=== PATIENT | female | born 1940 | race Caucasian/White ===

== ENCOUNTER 2016-10-06 09:43 | Emergency (ER) | payer MEDICARE ==
[~2016-10-06 09:43] MED LIST: ALAVERT10 MG PO; ALBUTEROL17 GM INH; AMLODIPINE BESYL5 MG PO; ASPIRIN PO; ASPIRIN81 MG PO; B-121000 MC3 SUBQ; BENADRYL PO; BENTYL20 MG PO; BENZONATATE PO; BENZONATATE200 M1 PO; CALCIUM 250+D T1 TAB PO; CALCIUM 600 +1 EAC1 PO; CELEXA20 MG PO; CIPRO PO; CIPRO250 MG PO; CLARITIN10 MG PO; COMBIVENT INH14.7 GM INH; COMBIVENT14.7 GM INH; COREG PO; COREG6.25 MG PO; CYANOCOBAL1000 MCG/M INJ; DIAZEPAM PO; DIAZEPAM10 MG PO; FLAGYL PO; GABAPENTIN300 MG PO; GAS-X80 MG PO; GUAIFENESIN W-120 ML PO; HYDROCHLOROTH12.5 MG PO; HYDROCHLOROTHIA25 MG PO; LISINOPRIL PO; LISINOPRIL20 MG PO; LISINOPRIL5 MG PO; LORTAB 7.5-5001 TAB PO; LORTAB 7.51 TAB 7.5/ PO; MAG-OX 400400 MG PO; MAG-OXIDE400 MG PO; MAGNESIUM400 MG PO; MYLANTA GAS80 MG PO; NITROGLYGERIN0.4 MG SL; NORCO 7.5/325 T1 TAB PO; OMEPRAZOLE20 M2 PO; OYSTER SHELL 501 TAB PO; PANTOPRAZOLE SO40 MG PO; PEPCID AC20 M2 PO; PLAVIX300 MG PO; PREDNISONE10 MG/DOSE PO; PROTONIX PO; SIMVASTATIN20 MG PO; SIMVASTATIN40 MG PO; TUSSIONEX PENN473 ML PO; ULTRAM PO; VICODIN 5/1 TAB 5/50 PO; VITAMIN B-1000 MCG/1 SUBQ; ZOCOR PO; ZOCOR20 MG PO; ZOCOR80 MG PO
[2016-10-06] MEDS ORDERED: [UNRECOGNIZED DRUG - REMARK] (10:02)
[2016-10-06] MEDS ORDERED: LISINOPRIL (10:02)
== END 2016-10-06 10:53 | disposition home or self-care (01) ==
LOC: SED 09:43
DX: M54.41 Lumbago with sciatica, right side (principal); I10 Essential (primary) hypertension; J44.9 Chronic obstructive pulmonary disease, unspecified; Z90.49 Acquired absence of other specified parts of digestive tract; Z90.89 Acquired absence of other organs; Z88.5 Allergy status to narcotic agent; Z88.8 Allergy status to other drugs, medicaments and biological substances
CPT/HCPCS: 96372; 99283; J1040

== ENCOUNTER 2016-12-02 16:52 | Emergency (ER) | payer OTHER, MEDICARE ==
[~2016-12-02] VITALS: Ht 160 cm; Wt 86.2 kg
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
[~2016-12-02 16:52] MED LIST changes: +LISINOPRIL; +[UNRECOGNIZED DRUG - REMARK]
== END 2016-12-02 20:45 | disposition home or self-care (01) ==
LOC: CED 16:52 → CFTX 16:52
DX: S33.5XXA Sprain of ligaments of lumbar spine, initial encounter (principal); S80.02XA Contusion of left knee, initial encounter; S60.221A Contusion of right hand, initial encounter; S80.12XA Contusion of left lower leg, initial encounter; I10 Essential (primary) hypertension; Z86.73 Personal history of transient ischemic attack (TIA), and cerebral infarction without residual deficits; V49.40XA Driver injured in collision with unspecified motor vehicles in traffic accident, initial encounter
CPT/HCPCS: 72100; 73130; 73552; 73560; 99284